=== PATIENT | male | born 1990 | race Caucasian/White ===

== ENCOUNTER → 2018-02-27 | Outpatient (CLI) | payer BC ==
[~2018-02-27] MED LIST: CONTRAST GIVEN MC
[2018-02-27] MEDS: IOHEXOL 300 MG/ML 100ML VIAL. IV (14:08)
== END | disposition home or self-care (01) ==
LOC: KCIC CT 13:39
DX: D10.4 Benign neoplasm of tonsil (principal); R49.0 Dysphonia; R63.4 Abnormal weight loss
CPT/HCPCS: 70492; Q9967

== ENCOUNTER → 2018-03-10 | Outpatient (CLI) | payer BC | END | disposition home or self-care (01) | LOC: ECHO 11:01 | DX: Z01.810 Encounter for preprocedural cardiovascular examination (principal); I31.3 Pericardial effusion (noninflammatory); I34.0 Nonrheumatic mitral (valve) insufficiency; R00.0 Tachycardia, unspecified | CPT/HCPCS: 93306 ==